=== PATIENT | female | born 1985 | race Asian ===

== ENCOUNTER 2017-03-25 16:39 | Inpatient (IN) | payer OTHER ==
[~2017-03-25] VITALS: Ht 160 cm; Wt 66.0 kg
[2017-03-25] MEDS ORDERED: FentaNYL/BUPIV 0.125%/NS/PF 200 ML ED PRN (17:54)
[2017-03-25] MEDS ORDERED: OXYTOCIN 20 UNITS/LACT RINGERS 1,000 ML IV ONE (17:54)
[2017-03-25] MEDS ORDERED: METOCLOPRAMIDE HCL 5 MG/ML 2 ML VIAL IVP PRN (18:00)
[2017-03-25] MEDS ORDERED: LIDOCAINE HCL/PF 1% 30 ML VIAL INJ PRN (18:00)
[2017-03-25] MEDS ORDERED: MISOPROSTOL 25 MCG TABLET VG ONE (18:00)
[2017-03-25] MEDS ORDERED: CITRIC ACID/SODIUM CITRATE 30 ML SOLUTION UDCUP PO PRN (18:00)
[2017-03-25] MEDS ORDERED: TERBUTALINE SULFATE 1 MG/ML VIAL SQ PRN (18:00)
[2017-03-25 18:07] VITALS: BP 116/70
[2017-03-25] MEDS: RINGERS SOLUTION,LACTATED 1,000 ML IV SCH (18:22)
[2017-03-25 18:41] LABS: BASOPHILS % (AUTO) 0.2 % (0.0-2.0); EOSINOPHILS % (AUTO) 0.8 % (1.0-6.0); HEMATOCRIT 35.9 % (36-46); HEMOGLOBIN 12.3 g/dL (12.0-16.0); LYMPHOCYTES # (AUTO) 2.2 K/uL (1.0-4.8); LYMPHOCYTES % (AUTO) 21.4 % (22.0-44.0); MEAN CORPUSCULAR HEMOGLOBIN 32.5 pg (26.0-34.0); MEAN CORPUSCULAR HGB CONC 34.2 G/dL (31.0-37.0); MEAN CORPUSCULAR VOLUME 95 fL (80-100); MONOCYTES # (AUTO) 1.2 K/uL (0.1-1.0); MONOCYTES % (AUTO) 11.6 % (2.0-9.0); NEUTROPHILS # (AUTO) 6.8 K/uL (1.8-7.7); PLATELET COUNT (AUTO)-OB 210 K/uL (150-450); RED BLOOD CELL COUNT(AUTO) 3.78 MIL/uL (4.00-5.20); RED CELL DISTRIBUTION WIDTH 13.6 % (11.5-14.5)
[2017-03-25] MEDS ORDERED: OXYTOCIN 30 UNITS/LACT RINGERS 500 ML IV PRN (22:44)
[2017-03-26] MEDS: RINGERS SOLUTION,LACTATED 1,000 ML IV SCH ×3 (01:12→04:16)
[2017-03-26] MEDS ORDERED: LIDOCAINE HCL/PF 2% 5 ML VIAL ONE (03:01)
[2017-03-26] MEDS ORDERED: FentaNYL/BUPIV 0.125%/NS/PF 200 ML ED ONE (03:02)
[2017-03-26] MEDS ORDERED: FentaNYL/BUPIV 0.125%/NS/PF 200 ML ED PRN (03:34)
[2017-03-26] MEDS ORDERED: NALBUPHINE HCL 10 MG/ML VIAL IVP PRN (03:45)
[2017-03-26] MEDS ORDERED: DiphenhydrAMINE HCL 50 MG/ML VIAL IVP PRN (03:45)
[2017-03-26] MEDS ORDERED: ONDANSETRON HCL 4 MG/2 ML VIAL IVP PRN (03:45)
[2017-03-26] MEDS ORDERED: RINGERS SOLUTION,LACTATED 1,000 ML IV ONE (10:24)
[2017-03-26] MEDS ORDERED: MEASLES/MUMPS/RUBELLA VACCINE, LIVE 0.5 ML/VIAL SQ ONE (10:30)
[2017-03-26] MEDS ORDERED: IBUPROFEN 600 MG TABLET PO PRN (10:30)
[2017-03-26] MEDS ORDERED: BENZOCAINE 20%/MENTHOL 56 GM SPRAY CANISTER TP PRN (10:30)
[2017-03-26] MEDS ORDERED: GLYCERIN/WITCH HAZEL LEAF 40 PADS JAR TP PRN (10:30)
[2017-03-26] MEDS ORDERED: LANOLIN 7 GM OINTMENT TP PRN (10:30)
[2017-03-26] MEDS ORDERED: OxyCODONE HCL/ACETAMINOPHEN 5-325 MG TABLET PO PRN ×2 (10:30)
[2017-03-26] MEDS: MAGNESIUM HYDROXIDE SUSPENSION 30 ML UDCUP PO SCH (21:00)
[2017-03-27] MEDS: MAGNESIUM HYDROXIDE SUSPENSION 30 ML UDCUP PO SCH (09:00)
[2017-03-27] MEDS ORDERED: IBUP-2070 PO (10:43)
[2017-03-27] MEDS ORDERED: DSS100 PO ×2 (10:43→10:44)
== END 2017-03-27 10:45 | disposition home or self-care (01) | DRG 774 ==
LOC: 4S 16:39 → OBSVTOIN 16:39
PROVIDERS: ADMIT Obstetrics & Gynecology; ATTEND Obstetrics & Gynecology
PROC: 0KQM0ZZ Repair Perineum Muscle, Open Approach (ICD-10-PCS; principal; 2017-03-26)
PROC: 10E0XZZ Delivery of Products of Conception, External Approach (ICD-10-PCS; 2017-03-26)
PROC: 3E0R3BZ Introduction of Anesthetic Agent into Spinal Canal, Percutaneous Approach (ICD-10-PCS; 2017-03-26)
PROC: 00HU33Z Insertion of Infusion Device into Spinal Canal, Percutaneous Approach (ICD-10-PCS; 2017-03-26)
DX: O69.81X0 Labor and delivery complicated by cord around neck, without compression, not applicable or unspecified (principal); O24.92 Unspecified diabetes mellitus in childbirth; O70.1 Second degree perineal laceration during delivery; O48.0 Post-term pregnancy; Z3A.40 40 weeks gestation of pregnancy; Z37.0 Single live birth
CPT/HCPCS: 90707; J2590; J3490; J7120